=== PATIENT | male | born 1955 | race Asian ===

== ENCOUNTER 2016-11-07 09:31 | Outpatient (CLI) | payer OTHER ==
[~2016-11-07 09:31] MED LIST: ALPR0.5T24 PO; BUMETANIDE2 MG PO; CYPROHEPTAD4 MG PO; FUROSEMIDE80 MG PO; GABA300C2 PO; HYDR-3182 PO; IVABRADINE EX; LANTUS100 MG/ML SC; METO25TA4 PO; PAXIL20 MG PO; POTASSIUM CHLO20 ME1 PO; PRAS10TA PO; SIMV40TA57 PO; SPIR25TA66 PO
[2016-11-07 10:42] LABS: POTASSIUM 3.3 mmol/L (3.6-5.2)
== END 2016-11-07 19:12 | disposition home or self-care (01) ==
LOC: LABW 09:31 → EDBD 09:31 → LABW 19:12
PROVIDERS: Internal Medicine Cardiovascular Disease
DX: Z79.899 Other long term (current) drug therapy (principal); I50.9 Heart failure, unspecified; Z51.81 Encounter for therapeutic drug level monitoring
CPT/HCPCS: 36415; 80048; 83880

== ENCOUNTER 2016-12-02 14:18 | Outpatient (CLI) | payer OTHER ==
[2016-12-02 14:48] LABS: POTASSIUM 3.5 mmol/L (3.6-5.2); SODIUM 134 mmol/L (136-145)
== END 2016-12-02 20:15 | disposition home or self-care (01) ==
LOC: EDBD 14:18 → LABW 14:18
PROVIDERS: Internal Medicine Cardiovascular Disease
DX: I50.9 Heart failure, unspecified (principal); F11.20 Opioid dependence, uncomplicated
CPT/HCPCS: 36415; 80048; 80307; 83880; G0479

== ENCOUNTER 2016-12-02 17:59 | Emergency (ER) | payer OTHER ==
[~2016-12-02] VITALS: Ht 175.3 cm; Wt 79.8 kg
[2016-12-02 20:31] LABS: PLATELET COUNT 347 K/uL (142-355)
[2016-12-02 20:34] LABS: SODIUM 131 mmol/L (136-145)
[2016-12-02 22:54] VITALS: BP 166/87; TEMP 98.6
== END 2016-12-02 23:03 | disposition home or self-care (01) ==
LOC: EDBD 17:59 → ED 17:59
PROVIDERS: Emergency Medicine
DX: E11.65 Type 2 diabetes mellitus with hyperglycemia (principal); Z79.4 Long term (current) use of insulin; I50.9 Heart failure, unspecified; F11.20 Opioid dependence, uncomplicated
CPT/HCPCS: 36415; 80048; 80053; 80307; 81000; 82962; 83880; 85027; 96361; 96365; 96372; 96374; 96376; 99284; G0479; J1815

== ENCOUNTER 2016-12-09 10:52 | Outpatient (CLI) | payer OTHER ==
[2016-12-09 11:28] LABS: POTASSIUM 3.9 mmol/L (3.6-5.2); SODIUM 130 mmol/L (136-145)
== END 2016-12-09 19:09 | disposition home or self-care (01) ==
LOC: EDBD 10:52 → LABW 10:52
PROVIDERS: Internal Medicine Cardiovascular Disease
DX: Z79.899 Other long term (current) drug therapy (principal); Z51.81 Encounter for therapeutic drug level monitoring
CPT/HCPCS: 36415; 80048; 83880

== ENCOUNTER 2017-01-27 13:33 | Outpatient (CLI) | payer OTHER ==
[2017-01-27 14:04] LABS: POTASSIUM 3.3 mmol/L (3.6-5.2); SODIUM 137 mmol/L (136-145)
== END 2017-01-27 19:19 | disposition home or self-care (01) ==
LOC: EDBD 13:33 → LABW 13:33
PROVIDERS: Internal Medicine Cardiovascular Disease
DX: I50.9 Heart failure, unspecified (principal)
CPT/HCPCS: 36415; 80048; 83880

== ENCOUNTER 2017-03-04 10:24 | Emergency (ER) | payer OTHER ==
[~2017-03-04] VITALS: Ht 175.3 cm; Wt 83.9 kg
[2017-03-04 10:30] VITALS: TEMP 98.9
[2017-03-04] MEDS ORDERED: METFTAB PO (10:50)
[2017-03-04] MEDS ORDERED: LATANOPROST0.005 % OP (10:51)
[2017-03-04 10:53] LABS: PLATELET COUNT 431 K/uL (142-355)
[2017-03-04] MEDS ORDERED: NITROSTAT0.4 MG SL (10:55)
[2017-03-04 11:06] LABS: POTASSIUM 3.3 mmol/L (3.6-5.2)
[2017-03-04 12:30] VITALS: BP 160/88
== END 2017-03-04 11:00 | disposition home or self-care (01) ==
LOC: EDBD 10:24 → ED 10:24
DX: I42.8 Other cardiomyopathies (principal); I50.9 Heart failure, unspecified; E87.6 Hypokalemia; E11.65 Type 2 diabetes mellitus with hyperglycemia; I51.7 Cardiomegaly; D64.89 Other specified anemias; N18.9 Chronic kidney disease, unspecified; I44.4 Left anterior fascicular block
CPT/HCPCS: 36415; 80053; 81000; 82962; 83036; 83880; 85027; 93005; 99283

== ENCOUNTER 2017-03-24 16:20 | Emergency (ER) | payer OTHER ==
[~2017-03-24] VITALS: Ht 175.3 cm; Wt 80.3 kg
[2017-03-24 16:20] VITALS: TEMP 97.9
[~2017-03-24 16:20] MED LIST changes: +LATANOPROST0.005 % OP; +METFTAB PO; +NITROSTAT0.4 MG SL
[2017-03-24 17:25] LABS: PLATELET COUNT 513 K/uL (142-355)
[2017-03-24 17:29] LABS: POTASSIUM 3.8 mmol/L (3.6-5.2)
[2017-03-24 21:00] VITALS: BP 131/85
== END 2017-03-24 21:11 | disposition home or self-care (01) ==
LOC: ED 16:20 → EDBD 16:20 → ED 21:11
DX: R55 Syncope and collapse (principal); E11.65 Type 2 diabetes mellitus with hyperglycemia; G45.8 Other transient cerebral ischemic attacks and related syndromes
CPT/HCPCS: 36415; 80053; 80307; 81000; 82947; 83036; 83880; 85027; 93005; 96360; 99284; G0479; J7060

== ENCOUNTER 2017-04-19 07:25 | Outpatient (CLI) | payer OTHER | END 2017-04-19 07:28 | disposition short-term general hospital (02) | LOC: AMB 07:25 | DX: E16.1 Other hypoglycemia (principal) | CPT/HCPCS: A0425; A0427 ==

== ENCOUNTER 2017-04-19 07:32 | Emergency (ER) | payer OTHER ==
[~2017-04-19] VITALS: Ht 172.7 cm; Wt 74.8 kg
[2017-04-19 07:55] VITALS: TEMP 98
[2017-04-19 08:19] LABS: POTASSIUM 3.8 mmol/L (3.6-5.2)
[2017-04-19 08:28] LABS: PLATELET COUNT 313 K/uL (142-355)
[2017-04-19 09:25] VITALS: BP 123/70
== END 2017-04-19 09:47 | disposition home or self-care (01) ==
LOC: ED 07:32
DX: E16.1 Other hypoglycemia (principal); Z91.11 Patient's noncompliance with dietary regimen; F10.20 Alcohol dependence, uncomplicated; E11.9 Type 2 diabetes mellitus without complications
CPT/HCPCS: 80053; 81000; 82962; 83036; 85027; 96365; 96366; 99284

== ENCOUNTER 2017-08-20 17:06 | Emergency (ER) | payer OTHER ==
[~2017-08-20] VITALS: Ht 175.3 cm; Wt 77.1 kg
[2017-08-20 17:43] LABS: PLATELET COUNT 322 K/uL (142-355)
[2017-08-20 17:48] LABS: POTASSIUM 4.2 mmol/L (3.6-5.2)
[2017-08-20 19:27] VITALS: BP 133/58; TEMP 98.5
== END 2017-08-20 19:29 | disposition home or self-care (01) ==
LOC: ED 17:06
PROVIDERS: Emergency Medicine
DX: F14.10 Cocaine abuse, uncomplicated (principal); N39.0 Urinary tract infection, site not specified; I10 Essential (primary) hypertension; D64.89 Other specified anemias; E11.9 Type 2 diabetes mellitus without complications; R31.9 Hematuria, unspecified; I44.4 Left anterior fascicular block
CPT/HCPCS: 36415; 80053; 80307; 80320; 80329; 81000; 85027; 93005; 99285; G0479

== ENCOUNTER 2017-11-16 18:39 | Outpatient (CLI) | payer OTHER | END 2017-11-16 18:43 | disposition short-term general hospital (02) | LOC: AMB 18:39 → EDBD 18:39 → AMB 18:43 | DX: R41.82 Altered mental status, unspecified (principal); R47.81 Slurred speech | CPT/HCPCS: A0425; A0427 ==

== ENCOUNTER 2017-11-16 18:46 | Emergency (ER) | payer OTHER ==
[~2017-11-16] VITALS: Ht 175.3 cm; Wt 83.9 kg
[2017-11-16 20:45] LABS: POTASSIUM 4.3 mmol/L (3.6-5.2)
[2017-11-16 20:53] LABS: PLATELET COUNT 301 K/uL (142-355)
[2017-11-16 22:45] VITALS: BP 148/70; TEMP 98.9
== END 2017-11-16 22:47 | disposition home or self-care (01) ==
LOC: ED 18:46 → EDBD 18:46 → ED 22:47
DX: R41.82 Altered mental status, unspecified (principal); F14.10 Cocaine abuse, uncomplicated; R82.90 Unspecified abnormal findings in urine; R31.9 Hematuria, unspecified
CPT/HCPCS: 36415; 80053; 80307; 80320; 81000; 85027; 87081; 87804; 87880; 93005; 99283

== ENCOUNTER → 2017-12-09 09:40 | Outpatient (CLI) | payer OTHER | END | disposition home or self-care (01) | LOC: AMB 09:40 → EDBD 09:40 | DX: E16.1 Other hypoglycemia (principal) ==

== ENCOUNTER 2017-12-26 09:02 | Outpatient (CLI) | payer OTHER | END 2017-12-26 09:06 | disposition short-term general hospital (02) | LOC: AMB 09:02 | DX: E11.641 Type 2 diabetes mellitus with hypoglycemia with coma (principal) | CPT/HCPCS: A0425; A0427 ==

== ENCOUNTER 2017-12-26 09:14 | Emergency (ER) | payer OTHER ==
[~2017-12-26] VITALS: Ht 175.3 cm; Wt 81.6 kg
[2017-12-26 09:20] VITALS: TEMP 97.5
[2017-12-26 09:41] LABS: PLATELET COUNT 364 K/uL (142-355)
[2017-12-26 10:07] LABS: PARTIAL THROMBOPLASTIN TIME 21.8 SECONDS (24.5-33.6)
[2017-12-26 10:10] LABS: POTASSIUM 3.9 mmol/L (3.6-5.2)
[2017-12-26 12:55] VITALS: BP 151/100
== END 2017-12-26 12:55 | disposition home or self-care (01) ==
LOC: ED 09:14 → EDBD 09:14 → ED 12:55
DX: E11.649 Type 2 diabetes mellitus with hypoglycemia without coma (principal); J32.9 Chronic sinusitis, unspecified; I50.9 Heart failure, unspecified; I42.8 Other cardiomyopathies; I48.92 Unspecified atrial flutter; I44.4 Left anterior fascicular block
CPT/HCPCS: 36415; 80053; 82550; 82553; 82947; 82962; 83036; 83880; 84484; 85027; 85610; 85730; 93005; 96374; 99284; J7060

== ENCOUNTER 2018-03-27 21:49 | Emergency (ER) | payer OTHER ==
[~2018-03-27] VITALS: Ht 175.3 cm; Wt 74.8 kg
[2018-03-27 22:48] LABS: POTASSIUM 4.1 mmol/L (3.6-5.2)
[2018-03-27 22:55] LABS: PLATELET COUNT 212 K/uL (142-355)
[2018-03-28 01:47] VITALS: BP 134/84; TEMP 98.3
== END 2018-03-28 02:00 | disposition home or self-care (01) ==
LOC: ED 21:49
DX: R11.2 Nausea with vomiting, unspecified (principal); R91.8 Other nonspecific abnormal finding of lung field; I51.7 Cardiomegaly; M79.605 Pain in left leg; M79.604 Pain in right leg
CPT/HCPCS: 74022; 80053; 80307; 81000; 82150; 83690; 85027; 96361; 96365; 99284; J2405

== ENCOUNTER 2018-06-23 17:06 | Outpatient (CLI) | payer OTHER | END 2018-06-23 17:09 | disposition short-term general hospital (02) | LOC: AMB 17:06 | DX: E11.649 Type 2 diabetes mellitus with hypoglycemia without coma (principal) | CPT/HCPCS: A0425; A0427 ==

== ENCOUNTER 2018-06-23 17:12 | Emergency (ER) | payer OTHER ==
[~2018-06-23] VITALS: Ht 188 cm; Wt 90.7 kg
[2018-06-23 17:33] LABS: PLATELET COUNT 464 K/uL (142-355)
[2018-06-23 17:39] LABS: POTASSIUM 3.6 mmol/L (3.6-5.2)
[2018-06-23 20:35] VITALS: BP 149/58; TEMP 97.8
== END 2018-06-23 20:45 | disposition short-term general hospital (02) ==
LOC: ED 17:12
PROC: 0T9B70Z Drainage of Bladder with Drainage Device, Via Natural or Artificial Opening (ICD-10-PCS; principal; 2018-06-23)
DX: I50.9 Heart failure, unspecified (principal); E11.649 Type 2 diabetes mellitus with hypoglycemia without coma; R00.0 Tachycardia, unspecified; I45.81 Long QT syndrome
CPT/HCPCS: 51702; 80053; 80307; 81000; 82550; 82553; 82962; 83880; 84484; 85027; 87088; 93005; 96361; 96365; 96374; 99285; J7060

== ENCOUNTER 2018-08-29 11:15 | Observation (INO) | payer OTHER ==
[2018-08-29] VITALS (13 sets, daily range): BP systolic 86–162; BP diastolic 40–96; TEMP 97–98.1; Ht 175.3 cm; Wt 85.7 kg
[~2018-08-29] VITALS: Ht 175.3 cm; Wt 85.7 kg
[2018-08-29 12:09] LABS: POTASSIUM 6.6 mmol/L (3.6-5.2)
[2018-08-29 12:10] LABS: PLATELET COUNT 340 K/uL (142-355)
[2018-08-30] VITALS: BP 142/79; TEMP 99
[2018-08-30 03:58] VITALS: BP 133/68; TEMP 100.4
[2018-08-30 07:05] LABS: PLATELET COUNT 298 K/uL (142-355)
[2018-08-30 07:19] LABS: POTASSIUM 5.3 mmol/L (3.6-5.2)
[2018-08-30 08:00] VITALS: BP 133/79; TEMP 99.6
[2018-08-30 12:00] VITALS: BP 153/78; TEMP 98.8
== END 2018-08-30 12:00 | disposition home or self-care (01) ==
LOC: ED 11:15 → MED/SURG 17:10
PROVIDERS: Family Medicine; ADMIT Emergency Medicine
DX: E11.65 Type 2 diabetes mellitus with hyperglycemia (principal); Z79.4 Long term (current) use of insulin; I25.10 Atherosclerotic heart disease of native coronary artery without angina pectoris; I10 Essential (primary) hypertension; E11.42 Type 2 diabetes mellitus with diabetic polyneuropathy
CPT/HCPCS: 36415; 36600; 80053; 80307; 81000; 82550; 82553; 82805; 82947; 82962; 84484; 85027; 93005; 96361; 96365; 96374; 96375; 99220; 99285; G0378; J1815; J7060

== ENCOUNTER 2019-01-23 16:38 | Outpatient (CLI) | payer OTHER ==
[2019-01-23] MEDS ORDERED: CARV25TA PO (19:14)
[2019-01-23] MEDS ORDERED: PAXIL20 MG PO (19:14)
[2019-01-23] MEDS ORDERED: FURO40TA93 PO (19:15)
[2019-01-23] MEDS ORDERED: COZAAR25 MG PO ×2 (19:15→19:16)
[2019-01-23] MEDS ORDERED: DILT-XR180 MG PO (19:16)
[2019-01-23] MEDS ORDERED: ELIQUIS5 MG PO (19:17)
== END 2019-01-23 16:45 | disposition short-term general hospital (02) ==
LOC: AMB 16:38
DX: R11.2 Nausea with vomiting, unspecified (principal); R53.1 Weakness; L89.309 Pressure ulcer of unspecified buttock, unspecified stage
CPT/HCPCS: A0425; A0427

== ENCOUNTER 2019-01-23 16:50 | Inpatient (IN) | payer OTHER ==
[2019-01-23] VITALS (7 sets, daily range): BP systolic 124–148; BP diastolic 80–87; TEMP 97.4–98.8; Ht 175.3 cm; Wt 77.1 kg
[~2019-01-23] VITALS: Ht 175.3 cm; Wt 77.1 kg
[2019-01-23 17:42] LABS: PLATELET COUNT 386 K/uL (142-355)
[2019-01-23 18:09] LABS: POTASSIUM 3.1 mmol/L (3.6-5.2)
[2019-01-23] MEDS ORDERED: CARV25TA PO (19:14)
[2019-01-23] MEDS ORDERED: PAXIL20 MG PO (19:14)
[2019-01-23] MEDS ORDERED: COZAAR25 MG PO ×2 (19:15→19:16)
[2019-01-23] MEDS ORDERED: FURO40TA93 PO (19:15)
[2019-01-23] MEDS ORDERED: DILT-XR180 MG PO (19:16)
[2019-01-23] MEDS ORDERED: ELIQUIS5 MG PO (19:17)
[2019-01-24] VITALS: BP 146/86; TEMP 98.3
[2019-01-24 04:00] VITALS: BP 124/74; TEMP 98.4
[2019-01-24 05:09] LABS: PLATELET COUNT 390 K/uL (142-355)
[2019-01-24 08:00] VITALS: BP 134/77; TEMP 98
[2019-01-24 12:00] VITALS: BP 117/50; TEMP 98
[2019-01-24 16:00] VITALS: BP 126/71; TEMP 99.1
[2019-01-24 20:00] VITALS: BP 125/64; TEMP 99
[2019-01-25] VITALS: BP 151/83; TEMP 98.7
[2019-01-25 04:00] VITALS: BP 169/83; TEMP 97.6
[2019-01-25 08:09] VITALS: BP 135/75; TEMP 97.8
[2019-01-25 10:36] LABS: PLATELET COUNT 364 K/uL (142-355)
[2019-01-25 10:48] LABS: POTASSIUM 3.5 mmol/L (3.6-5.2)
[2019-01-25 12:06] VITALS: BP 146/74; TEMP 97.9
[2019-01-25 16:03] VITALS: BP 129/73; TEMP 98.4
[2019-01-25 20:00] VITALS: BP 113/68; TEMP 98.6
[2019-01-26] VITALS (7 sets, daily range): BP systolic 113–140; BP diastolic 60–78; TEMP 98.1–99.1
[2019-01-26 06:01] LABS: PLATELET COUNT 291 K/uL (142-355)
[2019-01-26 06:18] LABS: POTASSIUM 4.3 mmol/L (3.6-5.2)
[2019-01-27 03:53] VITALS: BP 123/65; TEMP 98.8
[2019-01-27 05:51] LABS: PLATELET COUNT 284 K/uL (142-355)
[2019-01-27 06:09] LABS: PARTIAL THROMBOPLASTIN TIME 24.7 SECONDS (24.5-33.6); POTASSIUM 4.5 mmol/L (3.6-5.2)
[2019-01-27 08:00] VITALS: BP 150/77; TEMP 98.1
[2019-01-27 12:00] VITALS: BP 137/75; TEMP 98.9
[2019-01-27 16:00] VITALS: BP 122/69; TEMP 98.8
[2019-01-27 20:00] VITALS: BP 145/82; TEMP 99.3
[2019-01-28] VITALS: BP 156/87; TEMP 99.2
[2019-01-28 04:00] VITALS: BP 162/84; TEMP 98.3
[2019-01-28 06:20] LABS: PLATELET COUNT 319 K/uL (142-355)
[2019-01-28 06:27] LABS: POTASSIUM 4.7 mmol/L (3.6-5.2)
[2019-01-28 08:00] VITALS: BP 179/101; TEMP 98.9
[2019-01-28 12:00] VITALS: BP 135/73; TEMP 98.7
[2019-01-28 16:00] VITALS: BP 119/68; TEMP 98.1
[2019-01-28 20:00] VITALS: BP 125/69; TEMP 98.8
[2019-01-29] VITALS: BP 130/65; BP 155/80; TEMP 97.4; TEMP 98.7
[2019-01-29 04:00] VITALS: BP 130/55; TEMP 98.1
[2019-01-29 06:31] LABS: POTASSIUM 5.2 mmol/L (3.6-5.2)
[2019-01-29 06:41] LABS: PLATELET COUNT 322 K/uL (142-355)
[2019-01-29 08:00] VITALS: BP 165/83; TEMP 98.4
[2019-01-29 12:00] VITALS: BP 139/77; TEMP 98.6
[2019-01-29 16:00] VITALS: BP 115/65; TEMP 98.9
[2019-01-29 20:00] VITALS: BP 129/72; TEMP 97.8
[2019-01-30] VITALS (11 sets, daily range): BP systolic 131–178; BP diastolic 77–99; TEMP 97.3–98.4
[2019-01-30 05:35] LABS: PLATELET COUNT 355 K/uL (142-355)
[2019-01-30 05:58] LABS: POTASSIUM 4.7 mmol/L (3.6-5.2)
[2019-01-31] VITALS: BP 140/79; TEMP 98.4
[2019-01-31 04:00] VITALS: BP 128/73; TEMP 98.5
[2019-01-31 05:43] LABS: PLATELET COUNT 303 K/uL (142-355)
[2019-01-31 06:39] LABS: POTASSIUM 4.6 mmol/L (3.6-5.2)
[2019-01-31 08:00] VITALS: BP 142/89; TEMP 98.4
[2019-01-31 12:00] VITALS: BP 151/89; TEMP 98
[2019-01-31 16:00] VITALS: BP 139/77; TEMP 98.2
[2019-01-31 19:59] VITALS: BP 125/63; TEMP 98.5
[2019-02-01] VITALS: BP 124/65; TEMP 98.8
[2019-02-01 04:00] VITALS: BP 135/74; TEMP 98.6
[2019-02-01 05:19] LABS: PLATELET COUNT 311 K/uL (142-355)
[2019-02-01 08:00] VITALS: BP 136/83; TEMP 97.9
[2019-02-01 12:00] VITALS: BP 130/76; TEMP 98.4
[2019-02-01] MEDS ORDERED: GABA300C2 PO (14:31)
[2019-02-01] MEDS ORDERED: FOLI1TAB26 PO (14:31)
[2019-02-01] MEDS ORDERED: MULTTAB52 PO (14:32)
[2019-02-01] MEDS ORDERED: INSU300I SC (14:33)
[2019-02-01] MEDS ORDERED: THIA100T8 PO (14:34)
[2019-02-01 16:00] VITALS: BP 146/85; TEMP 98.2
[2019-02-01 20:00] VITALS: BP 140/71; TEMP 98.7
== END 2019-02-01 21:50 | DRG 637 ==
LOC: ED 16:50 → MED/SURG 19:00
PROVIDERS: Family Medicine; ADMIT Emergency Medicine
PROC: 30233N1 Transfusion of Nonautologous Red Blood Cells into Peripheral Vein, Percutaneous Approach (ICD-10-PCS; principal; 2019-01-24)
PROC: 30233N1 Transfusion of Nonautologous Red Blood Cells into Peripheral Vein, Percutaneous Approach (ICD-10-PCS; 2019-01-25)
PROC: 30233N1 Transfusion of Nonautologous Red Blood Cells into Peripheral Vein, Percutaneous Approach (ICD-10-PCS; 2019-01-29)
PROC: 0DB68ZX Excision of Stomach, Via Natural or Artificial Opening Endoscopic, Diagnostic (ICD-10-PCS; 2019-01-30)
PROC: 0DJD8ZZ Inspection of Lower Intestinal Tract, Via Natural or Artificial Opening Endoscopic (ICD-10-PCS; 2019-01-30)
DX: E11.65 Type 2 diabetes mellitus with hyperglycemia (principal); K29.51 Unspecified chronic gastritis with bleeding; I13.0 Hypertensive heart and chronic kidney disease with heart failure and stage 1 through stage 4 chronic kidney disease, or unspecified chronic kidney disease; L03.113 Cellulitis of right upper limb; E87.1 Hypo-osmolality and hyponatremia; N17.9 Acute kidney failure, unspecified; Z79.4 Long term (current) use of insulin; Z91.14 Patient's other noncompliance with medication regimen; D64.89 Other specified anemias; N18.3 Chronic kidney disease, stage 3 (moderate); F10.20 Alcohol dependence, uncomplicated; R54 Age-related physical debility; L89.152 Pressure ulcer of sacral region, stage 2; E87.6 Hypokalemia; I10 Essential (primary) hypertension; I25.10 Atherosclerotic heart disease of native coronary artery without angina pectoris; Z98.61 Coronary angioplasty status; Z87.891 Personal history of nicotine dependence; E11.22 Type 2 diabetes mellitus with diabetic chronic kidney disease; E11.42 Type 2 diabetes mellitus with diabetic polyneuropathy; I11.0 Hypertensive heart disease with heart failure
CPT/HCPCS: 36415; 36430; 36600; 80053; 81000; 81002; 82272; 82805; 82947; 82948; 82962; 83036; 83605; 83735; 83880; 85027; 85610; 85730; 86850; 86900; 86901; 86922; 93005; 96372; 96374; 99283; J0696; J1200; J1815; J1940; J2001; J2405; J2704; J2930; J3480; J3490; J7060; P9016

== ENCOUNTER 2019-08-21 13:24 | Inpatient (IN) | payer OTHER ==
[~2019-08-21 13:24] MED LIST changes: +CARV25TA PO; +COZAAR25 MG PO; +DILT-XR180 MG PO; +ELIQUIS5 MG PO; +FOLI1TAB26 PO; +FURO40TA93 PO; +INSU300I SC; +MULTTAB52 PO; +THIA100T8 PO
== END 2019-09-01 14:16 | disposition still patient (30) ==
LOC: PAVC 13:24
PROVIDERS: ADMIT Internal Medicine

== ENCOUNTER 2019-08-22 11:59 | Outpatient (CLI) | payer OTHER ==
[2019-08-22 12:12] LABS: PLATELET COUNT 209 K/uL (142-355)
[2019-08-22 12:25] LABS: POTASSIUM 4.2 mmol/L (3.6-5.2)
== END 2019-08-22 19:02 | disposition home or self-care (01) ==
LOC: LAB 11:59
PROVIDERS: Internal Medicine
DX: I11.0 Hypertensive heart disease with heart failure (principal); E11.9 Type 2 diabetes mellitus without complications; N40.0 Benign prostatic hyperplasia without lower urinary tract symptoms; I50.9 Heart failure, unspecified; N18.3 Chronic kidney disease, stage 3 (moderate); I48.0 Paroxysmal atrial fibrillation; D50.8 Other iron deficiency anemias
CPT/HCPCS: 80053; 80061; 82306; 82607; 82728; 82746; 83036; 83540; 83880; 84153; 84443; 85027

== ENCOUNTER 2019-08-23 09:34 | Outpatient (CLI) | payer OTHER | END 2019-08-23 23:28 | disposition home or self-care (01) | LOC: RESP 09:34 | DX: I50.9 Heart failure, unspecified (principal); J44.9 Chronic obstructive pulmonary disease, unspecified; N18.3 Chronic kidney disease, stage 3 (moderate) | CPT/HCPCS: 93306 ==

== ENCOUNTER 2019-09-01 15:00 | Inpatient (IN) | payer OTHER | END 2019-10-01 08:00 | disposition still patient (30) | LOC: PAVC 15:00 | PROVIDERS: ADMIT Internal Medicine ==

== ENCOUNTER 2019-09-21 02:18 | Outpatient (CLI) | payer OTHER | END 2019-09-21 19:09 | disposition home or self-care (01) | LOC: LAB 02:18 | DX: Z11.8 Encounter for screening for other infectious and parasitic diseases (principal) | CPT/HCPCS: 83630; 87015; 87045; 87324; 87328; 87329; 87449; 87493; 87899 ==

== ENCOUNTER 2019-10-01 11:00 | Inpatient (IN) | payer OTHER | END 2019-11-01 09:31 | disposition still patient (30) | LOC: PAVC 11:00 | PROVIDERS: ADMIT Internal Medicine ==

== ENCOUNTER → 2019-10-09 | Outpatient (CLI) | payer OTHER | LOC: LAB 22:00 | DX: R73.9 Hyperglycemia, unspecified (principal) | CPT/HCPCS: 36415; 82947 ==

== ENCOUNTER → 2019-10-14 | Outpatient (CLI) | payer OTHER | LOC: LAB 21:09 | DX: R73.9 Hyperglycemia, unspecified (principal) | CPT/HCPCS: 36415; 82947 ==

== ENCOUNTER → 2019-10-19 | Outpatient (CLI) | payer OTHER | LOC: LAB 20:10 | DX: R73.9 Hyperglycemia, unspecified (principal) | CPT/HCPCS: 82947 ==

== ENCOUNTER → 2019-10-23 | Outpatient (CLI) | payer OTHER | LOC: LAB 22:04 | DX: R73.9 Hyperglycemia, unspecified (principal) | CPT/HCPCS: 36415; 82947 ==

== ENCOUNTER 2019-11-01 10:06 | Inpatient (IN) | payer OTHER ==
[2019-11-25] MEDS ORDERED: SPIRONOLACT25 MG PO (06:23)
[2019-11-25] MEDS ORDERED: VALSARTAN40 MG PO (06:24)
[2019-11-25] MEDS ORDERED: ASCORBIC ACD500 MG PO (06:24)
[2019-11-25] MEDS ORDERED: FURO40TA93 PO (06:27)
[2019-11-25] MEDS ORDERED: CALCIUM 600 WIT1 TAB PO (06:27)
[2019-11-25] MEDS ORDERED: METF500T PO (06:29)
[2019-11-25] MEDS ORDERED: OMEPRAZOLE DR40 MG PO (06:31)
[2019-11-25] MEDS ORDERED: NOVOLOG SC (06:31)
== END 2019-12-02 10:46 | disposition still patient (30) ==
LOC: PAVC 10:06
PROVIDERS: ADMIT Internal Medicine

== ENCOUNTER 2019-11-03 04:47 | Outpatient (CLI) | payer OTHER | END 2019-11-03 19:04 | disposition home or self-care (01) | LOC: LAB 04:47 | DX: E11.69 Type 2 diabetes mellitus with other specified complication (principal) | CPT/HCPCS: 83036 ==

== ENCOUNTER 2019-11-05 06:23 | Outpatient (CLI) | payer OTHER | END 2019-11-05 20:57 | disposition home or self-care (01) | LOC: LAB 06:23 | DX: E11.9 Type 2 diabetes mellitus without complications (principal) | CPT/HCPCS: 36415; 82947 ==

== ENCOUNTER 2019-11-06 21:01 | Outpatient (CLI) | payer OTHER | END 2019-11-06 22:29 | disposition home or self-care (01) | LOC: LAB 21:01 | DX: R73.9 Hyperglycemia, unspecified (principal) | CPT/HCPCS: 36415; 82947 ==

== ENCOUNTER 2019-11-12 06:12 | Outpatient (CLI) | payer OTHER | END 2019-11-12 18:58 | disposition home or self-care (01) | LOC: LAB 06:12 | DX: R73.9 Hyperglycemia, unspecified (principal) | CPT/HCPCS: 82947 ==

== ENCOUNTER 2019-11-17 20:32 | Outpatient (CLI) | payer OTHER | END 2019-11-17 22:48 | disposition home or self-care (01) | LOC: LAB 20:32 | DX: E11.9 Type 2 diabetes mellitus without complications (principal) | CPT/HCPCS: 82947 ==

== ENCOUNTER 2019-11-20 22:38 | Outpatient (CLI) | payer OTHER | END 2019-11-20 23:43 | disposition home or self-care (01) | LOC: LAB 22:38 | DX: E11.9 Type 2 diabetes mellitus without complications (principal) | CPT/HCPCS: 82947 ==

== ENCOUNTER → 2019-11-24 | Outpatient (CLI) | payer OTHER ==
[~2019-11-24] MED LIST changes: +ASCORBIC ACD500 MG PO; +CALCIUM 600 WIT1 TAB PO; +METF500T PO; +NOVOLOG SC; +OMEPRAZOLE DR40 MG PO; +SPIRONOLACT25 MG PO; +VALSARTAN40 MG PO
== END ==
LOC: LAB 20:24
DX: E11.9 Type 2 diabetes mellitus without complications (principal)
CPT/HCPCS: 82947

== ENCOUNTER 2019-11-25 05:57 | Emergency (ER) | payer OTHER ==
[~2019-11-25] VITALS: Ht 175.3 cm; Wt 81.6 kg
[~2019-11-25 05:57] MED LIST changes: -ASCORBIC ACD500 MG PO; -CALCIUM 600 WIT1 TAB PO; -METF500T PO; -NOVOLOG SC; -OMEPRAZOLE DR40 MG PO; -SPIRONOLACT25 MG PO; -VALSARTAN40 MG PO
[2019-11-25 06:04] VITALS: TEMP 97.2
[2019-11-25] MEDS ORDERED: SPIRONOLACT25 MG PO (06:23)
[2019-11-25] MEDS ORDERED: VALSARTAN40 MG PO (06:24)
[2019-11-25] MEDS ORDERED: ASCORBIC ACD500 MG PO (06:24)
[2019-11-25] MEDS ORDERED: FURO40TA93 PO (06:27)
[2019-11-25] MEDS ORDERED: CALCIUM 600 WIT1 TAB PO (06:27)
[2019-11-25] MEDS ORDERED: METF500T PO (06:29)
[2019-11-25] MEDS ORDERED: OMEPRAZOLE DR40 MG PO (06:31)
[2019-11-25] MEDS ORDERED: NOVOLOG SC (06:31)
[2019-11-25 06:59] LABS: PLATELET COUNT 312 K/uL (142-355)
[2019-11-25 07:07] LABS: POTASSIUM 4.8 mmol/L (3.6-5.2)
[2019-11-25 09:38] VITALS: BP 130/67
== END 2019-11-25 09:38 ==
LOC: ED 05:57
PROVIDERS: Family Medicine
DX: E11.649 Type 2 diabetes mellitus with hypoglycemia without coma (principal); Z79.4 Long term (current) use of insulin; N39.0 Urinary tract infection, site not specified
CPT/HCPCS: 80053; 81000; 82947; 82962; 85027; 87077; 87086; 87088; 87185; 87186; 96365; 96375; 99284; J0696

== ENCOUNTER → 2019-11-25 | Outpatient (CLI) | payer OTHER | LOC: LAB 22:16 | DX: E11.65 Type 2 diabetes mellitus with hyperglycemia (principal) | CPT/HCPCS: 82947 ==

== ENCOUNTER 2019-12-02 11:22 | Inpatient (IN) | payer OTHER ==
[~2019-12-02 11:22] MED LIST changes: +ASCORBIC ACD500 MG PO; +CALCIUM 600 WIT1 TAB PO; +METF500T PO; +NOVOLOG SC; +OMEPRAZOLE DR40 MG PO; +SPIRONOLACT25 MG PO; +VALSARTAN40 MG PO
[2019-12-07] MEDS ORDERED: NITR100C56 PO (13:39)
[2019-12-07] MEDS ORDERED: NOVOLOG100 UNIT/M SC (13:42)
[2019-12-07] MEDS ORDERED: TYLENOL325 MG PO (13:45)
== END 2019-12-31 14:12 | disposition still patient (30) ==
LOC: PAVC 11:22
PROVIDERS: ADMIT Internal Medicine

== ENCOUNTER 2019-12-04 22:29 | Outpatient (CLI) | payer OTHER | END 2019-12-04 23:16 | disposition home or self-care (01) | LOC: LAB 22:29 | DX: I50.20 Unspecified systolic (congestive) heart failure (principal); M62.81 Muscle weakness (generalized); R26.2 Difficulty in walking, not elsewhere classified; Z74.1 Need for assistance with personal care; E11.9 Type 2 diabetes mellitus without complications | CPT/HCPCS: 82947 ==

== ENCOUNTER 2019-12-07 05:25 | Inpatient (IN) | payer OTHER ==
[2019-12-07] VITALS (22 sets, daily range): BP systolic 104–166; BP diastolic 58–98; TEMP 93.4–98.3; Ht 175.3 cm; Wt 70.3 kg
[~2019-12-07] VITALS: Ht 175.3 cm; Wt 70.3 kg
[2019-12-07 05:59] LABS: PLATELET COUNT 351 K/uL (142-355)
[2019-12-07 06:55] LABS: POTASSIUM 6.1 mmol/L (3.6-5.2)
[2019-12-07] MEDS ORDERED: NITR100C56 PO (13:39)
[2019-12-07] MEDS ORDERED: NOVOLOG100 UNIT/M SC (13:42)
[2019-12-07] MEDS ORDERED: TYLENOL325 MG PO (13:45)
[2019-12-08] VITALS (13 sets, daily range): BP systolic 110–161; BP diastolic 55–92; TEMP 98.2–98.9
[2019-12-08 04:17] LABS: PLATELET COUNT 268 K/uL (142-355)
[2019-12-08 05:08] LABS: POTASSIUM 6.2 mmol/L (3.6-5.2)
[2019-12-09] VITALS: BP 134/72; TEMP 98.5
[2019-12-09 03:57] VITALS: BP 181/98; TEMP 98.9
[2019-12-09 04:48] LABS: POTASSIUM 5.5 mmol/L (3.6-5.2)
[2019-12-09 04:54] LABS: PLATELET COUNT 249 K/uL (142-355)
[2019-12-09 08:00] VITALS: BP 159/88; TEMP 97.6
[2019-12-09 12:00] VITALS: BP 170/90; TEMP 98
[2019-12-09 16:00] VITALS: BP 163/91; TEMP 98.8
[2019-12-09 20:00] VITALS: BP 164/93; TEMP 98.7
[2019-12-10] VITALS: BP 168/91; TEMP 99.3
[2019-12-10 04:00] VITALS: BP 140/78; TEMP 98.6
[2019-12-10 08:00] VITALS: BP 140/71; TEMP 99.3
[2019-12-10 12:00] VITALS: BP 161/88; TEMP 98.4
[2019-12-10 16:00] VITALS: BP 165/95; TEMP 98.4
[2019-12-10 19:56] VITALS: BP 157/84; TEMP 98.5
[2019-12-11] VITALS: BP 143/80; TEMP 98.6
[2019-12-11 04:00] VITALS: BP 146/84; TEMP 98.9
[2019-12-11 05:48] LABS: PLATELET COUNT 255 K/uL (142-355)
[2019-12-11 06:01] LABS: POTASSIUM 5.2 mmol/L (3.6-5.2)
== END 2019-12-11 11:00 | DRG 690 ==
LOC: ED 05:25 → ICU 07:07 → MED/SURG 12-08 16:27
PROVIDERS: Emergency Medicine; ADMIT Internal Medicine
PROC: 30233N1 Transfusion of Nonautologous Red Blood Cells into Peripheral Vein, Percutaneous Approach (ICD-10-PCS; principal; 2019-12-07)
DX: N39.0 Urinary tract infection, site not specified (principal); E87.1 Hypo-osmolality and hyponatremia; I42.8 Other cardiomyopathies; I95.89 Other hypotension; E87.5 Hyperkalemia; E86.0 Dehydration; R09.02 Hypoxemia; I10 Essential (primary) hypertension; D64.89 Other specified anemias; I25.10 Atherosclerotic heart disease of native coronary artery without angina pectoris; E11.649 Type 2 diabetes mellitus with hypoglycemia without coma; B96.29 Other Escherichia coli [E. coli] as the cause of diseases classified elsewhere
CPT/HCPCS: 36415; 36600; 80053; 81000; 82550; 82553; 82805; 83605; 84484; 85027; 86850; 86900; 86901; 86922; 87077; 87086; 87088; 87186; 93005; 94760; 96361; 96365; 96375; 96376; 99285; J0696; J1335; J1610; J1650; J1815; J1940; J2310; J2405; J7060; P9016

== ENCOUNTER 2019-12-31 14:46 | Inpatient (IN) | payer OTHER ==
[~2019-12-31 14:46] MED LIST changes: +NITR100C56 PO; +NOVOLOG100 UNIT/M SC; +TYLENOL325 MG PO
== END 2020-01-31 11:44 | disposition still patient (30) ==
LOC: PAVC 14:46
PROVIDERS: ADMIT Internal Medicine

== ENCOUNTER 2020-01-31 12:19 | Inpatient (IN) | payer OTHER ==
[2020-02-03] MEDS ORDERED: INSUINJP SC (11:03)
[2020-02-03] MEDS ORDERED: MULT VITAMI1 PO (11:04)
[2020-02-20] MEDS ORDERED: LIPITOR40 MG PO (19:15)
[2020-02-20] MEDS ORDERED: AMLODIPINE BESYLATE PO (19:55)
[2020-02-20] MEDS ORDERED: AZIT250T3 PO (19:59)
[2020-02-20] MEDS ORDERED: HYDR200T3 PO (20:07)
[2020-02-20] MEDS ORDERED: CLONIDINE HYDR0.2 MG PO (20:09)
[2020-03-02] MEDS ORDERED: ACET-206 PO (12:46)
== END 2020-03-01 11:23 | disposition still patient (30) ==
LOC: PAVC 12:19
PROVIDERS: ADMIT Internal Medicine

== ENCOUNTER 2020-02-01 06:30 | Inpatient (IN) | payer OTHER ==
[~2020-02-01] VITALS: Ht 175.3 cm; Wt 74.6 kg
[2020-02-01 08:01] LABS: PLATELET COUNT 199 K/uL (142-355)
[2020-02-01 09:27] LABS: POTASSIUM 6.7 mmol/L (3.6-5.2)
[2020-02-01 15:03] LABS: POTASSIUM 7.1 mmol/L (3.6-5.2)
[2020-02-01 15:37] VITALS: BP 155/87; TEMP 98.1; Ht 175.3 cm; Wt 74.6 kg
[2020-02-01 16:00] VITALS: BP 115/87; TEMP 98.2
[2020-02-01 20:00] VITALS: BP 169/105; TEMP 98.4
[2020-02-02] VITALS: BP 169/109; TEMP 98.9
[2020-02-02 04:00] VITALS: BP 163/110; TEMP 98.5
[2020-02-02 08:00] VITALS: BP 121/78; TEMP 97.9
[2020-02-02 08:23] LABS: POTASSIUM 5.8 mmol/L (3.6-5.2)
[2020-02-02 12:00] VITALS: BP 160/102; TEMP 97.8
[2020-02-02 16:00] VITALS: BP 158/92; TEMP 97.9
[2020-02-02 20:00] VITALS: BP 166/96; TEMP 97.7
[2020-02-03] VITALS: BP 170/101; TEMP 97.9
[2020-02-03 04:00] VITALS: BP 155/96; TEMP 98.2
[2020-02-03 05:09] LABS: POTASSIUM 4.4 mmol/L (3.6-5.2)
[2020-02-03 05:12] LABS: PLATELET COUNT 213 K/uL (142-355)
[2020-02-03 08:07] VITALS: BP 166/107; TEMP 97.8
[2020-02-03] MEDS ORDERED: INSUINJP SC (11:03)
[2020-02-03] MEDS ORDERED: MULT VITAMI1 PO (11:04)
[2020-02-03 12:00] VITALS: BP 157/100; TEMP 98
== END 2020-02-03 11:20 | DRG 812 ==
LOC: LAB 06:30 → MED/SURG 11:58
PROVIDERS: ADMIT Internal Medicine
PROC: 30233N1 Transfusion of Nonautologous Red Blood Cells into Peripheral Vein, Percutaneous Approach (ICD-10-PCS; principal; 2020-02-01)
PROC: 30233N1 Transfusion of Nonautologous Red Blood Cells into Peripheral Vein, Percutaneous Approach (ICD-10-PCS; 2020-02-02)
DX: D64.89 Other specified anemias (principal); I13.0 Hypertensive heart and chronic kidney disease with heart failure and stage 1 through stage 4 chronic kidney disease, or unspecified chronic kidney disease; E87.5 Hyperkalemia; I48.91 Unspecified atrial fibrillation; I25.10 Atherosclerotic heart disease of native coronary artery without angina pectoris; K21.9 Gastro-esophageal reflux disease without esophagitis; E11.22 Type 2 diabetes mellitus with diabetic chronic kidney disease; E11.65 Type 2 diabetes mellitus with hyperglycemia; N18.3 Chronic kidney disease, stage 3 (moderate); E11.42 Type 2 diabetes mellitus with diabetic polyneuropathy
CPT/HCPCS: 80048; 80053; 80061; 82306; 82728; 82746; 83036; 83540; 83735; 85027; 86850; 86900; 86901; 86922; 93005; J1940; P9016

== ENCOUNTER 2020-02-09 06:45 | Outpatient (CLI) | payer OTHER ==
[~2020-02-09 06:45] MED LIST changes: +INSUINJP SC; +MULT VITAMI1 PO
[2020-02-09 10:11] LABS: POTASSIUM 5.8 mmol/L (3.6-5.2)
== END 2020-02-09 20:27 | disposition home or self-care (01) ==
LOC: LAB 06:45
PROVIDERS: Internal Medicine
DX: N18.3 Chronic kidney disease, stage 3 (moderate) (principal); E11.9 Type 2 diabetes mellitus without complications
CPT/HCPCS: 36415; 80048

== ENCOUNTER 2020-02-16 05:41 | Outpatient (CLI) | payer OTHER ==
[2020-02-16 07:41] LABS: POTASSIUM 6.9 mmol/L (3.6-5.2)
== END 2020-02-16 19:53 | disposition home or self-care (01) ==
LOC: LAB 05:41
PROVIDERS: Internal Medicine
DX: D50.8 Other iron deficiency anemias (principal); I50.9 Heart failure, unspecified
CPT/HCPCS: 80048

== ENCOUNTER 2020-02-17 00:27 | Outpatient (CLI) | payer OTHER | END 2020-02-17 19:51 | disposition home or self-care (01) | LOC: LAB 00:27 | DX: E87.5 Hyperkalemia (principal); R19.7 Diarrhea, unspecified | CPT/HCPCS: 87015; 87045; 87077; 87185; 87186; 87899 ==

== ENCOUNTER 2020-02-19 05:54 | Outpatient (CLI) | payer OTHER ==
[2020-02-19 12:21] LABS: POTASSIUM 6.8 mmol/L (3.6-5.2)
[2020-02-20] MEDS ORDERED: LIPITOR40 MG PO (19:15)
[2020-02-20] MEDS ORDERED: AMLODIPINE BESYLATE PO (19:55)
[2020-02-20] MEDS ORDERED: AZIT250T3 PO (19:59)
[2020-02-20] MEDS ORDERED: HYDR200T3 PO (20:07)
[2020-02-20] MEDS ORDERED: CLONIDINE HYDR0.2 MG PO (20:09)
== END 2020-02-19 20:07 | disposition home or self-care (01) ==
LOC: LAB 05:54
PROVIDERS: Internal Medicine
DX: E87.5 Hyperkalemia (principal); R79.89 Other specified abnormal findings of blood chemistry
CPT/HCPCS: 80048

== ENCOUNTER 2020-02-20 07:58 | Outpatient (CLI) | payer OTHER ==
[2020-02-20 08:25] LABS: POTASSIUM 6.5 mmol/L (3.6-5.2)
[2020-02-20] MEDS ORDERED: LIPITOR40 MG PO (19:15)
[2020-02-20] MEDS ORDERED: AMLODIPINE BESYLATE PO (19:55)
[2020-02-20] MEDS ORDERED: AZIT250T3 PO (19:59)
[2020-02-20] MEDS ORDERED: HYDR200T3 PO (20:07)
[2020-02-20] MEDS ORDERED: CLONIDINE HYDR0.2 MG PO (20:09)
== END 2020-02-20 22:31 | disposition home or self-care (01) ==
LOC: LAB 07:58
PROVIDERS: Internal Medicine
DX: E87.5 Hyperkalemia (principal)
CPT/HCPCS: 80048

== ENCOUNTER 2020-02-20 14:02 | Inpatient (IN) | payer OTHER ==
[~2020-02-20] VITALS: Ht 175.3 cm; Wt 75.7 kg
[2020-02-20 14:05] VITALS: BP 124/69; TEMP 99
[2020-02-20 14:32] LABS: PLATELET COUNT 290 K/uL (142-355)
[2020-02-20 14:36] LABS: POTASSIUM 6.1 mmol/L (3.6-5.2)
[2020-02-20 15:00] VITALS: BP 128/76
[2020-02-20 15:30] VITALS: TEMP 97.9
[2020-02-20 18:28] VITALS: BP 124/71; TEMP 97.3; Ht 175.3 cm; Wt 75.7 kg
[2020-02-20 19:00] VITALS: BP 132/75
[2020-02-20] MEDS ORDERED: LIPITOR40 MG PO (19:15)
[2020-02-20] MEDS ORDERED: AMLODIPINE BESYLATE PO (19:55)
[2020-02-20] MEDS ORDERED: AZIT250T3 PO (19:59)
[2020-02-20] MEDS ORDERED: HYDR200T3 PO (20:07)
[2020-02-20] MEDS ORDERED: CLONIDINE HYDR0.2 MG PO (20:09)
[2020-02-21] VITALS: BP 131/72; TEMP 97.3
[2020-02-21 04:00] VITALS: BP 141/78; TEMP 97.7
[2020-02-21 06:57] LABS: PLATELET COUNT 315 K/uL (142-355)
[2020-02-21 07:11] LABS: POTASSIUM 5.8 mmol/L (3.6-5.2)
[2020-02-21 08:00] VITALS: BP 130/69; TEMP 97.7
[2020-02-21 12:00] VITALS: BP 116/65; TEMP 98.3
[2020-02-21 16:00] VITALS: BP 120/61; TEMP 98.8
[2020-02-21 20:00] VITALS: BP 119/64; TEMP 98.9
[2020-02-22] VITALS (13 sets, daily range): BP systolic 116–135; BP diastolic 56–74; TEMP 97.4–103
[2020-02-22 05:43] LABS: PLATELET COUNT 303 K/uL (142-355)
[2020-02-22 05:55] LABS: POTASSIUM 5.5 mmol/L (3.6-5.2)
[2020-02-23] VITALS (14 sets, daily range): BP systolic 128–171; BP diastolic 70–88; TEMP 97.4–98.9
[2020-02-23 05:29] LABS: POTASSIUM 4.8 mmol/L (3.6-5.2)
[2020-02-23 05:41] LABS: PLATELET COUNT 297 K/uL (142-355)
[2020-02-24] VITALS (18 sets, daily range): BP systolic 136–166; BP diastolic 70–98; TEMP 97.6–99.2
[2020-02-25] VITALS (22 sets, daily range): BP systolic 141–1646; BP diastolic 84–106; TEMP 97.5–99.1
[2020-02-25 05:32] LABS: PLATELET COUNT 257 K/uL (142-355)
[2020-02-26] VITALS (28 sets, daily range): BP systolic 142–182; BP diastolic 77–94; TEMP 97.6–98.7
[2020-02-26 06:09] LABS: PLATELET COUNT 214 K/uL (142-355)
[2020-02-26 06:33] LABS: POTASSIUM 3.5 mmol/L (3.6-5.2)
[2020-02-27] VITALS (23 sets, daily range): BP systolic 109–161; BP diastolic 65–97; TEMP 97.8–99.3
[2020-02-28] VITALS (24 sets, daily range): BP systolic 154–172; BP diastolic 82–108; TEMP 97.6–99.2
[2020-02-28 06:30] LABS: POTASSIUM 3.5 mmol/L (3.6-5.2)
[2020-02-28 07:09] LABS: PLATELET COUNT 83 K/uL (142-355)
[2020-02-29] VITALS (21 sets, daily range): BP systolic 146–171; BP diastolic 76–101; TEMP 97–98.4
[2020-02-29 04:38] LABS: PLATELET COUNT 261 K/uL (142-355)
[2020-02-29 04:42] LABS: POTASSIUM 3.9 mmol/L (3.6-5.2)
[2020-03-01] VITALS (19 sets, daily range): BP systolic 131–162; BP diastolic 76–97; TEMP 97.8–98.8
[2020-03-01 06:45] LABS: PLATELET COUNT 262 K/uL (142-355)
[2020-03-01 06:57] LABS: POTASSIUM 3.9 mmol/L (3.6-5.2)
[2020-03-02] VITALS (24 sets, daily range): BP systolic 130–170; BP diastolic 73–100; TEMP 97.9–99.1
[2020-03-02 09:33] LABS: POTASSIUM 3.9 mmol/L (3.6-5.2)
[2020-03-02 09:55] LABS: PLATELET COUNT 249 K/uL (142-355)
[2020-03-02] MEDS ORDERED: ACET-206 PO (12:46)
[2020-03-03] VITALS (10 sets, daily range): BP systolic 133–151; BP diastolic 76–91; TEMP 97.9–98.8
== END 2020-03-03 10:00 | DRG 177 ==
LOC: ED 14:02 → ICU 15:39 → ED 15:39 → MED/SURG 15:39 → ICU 21:25
PROVIDERS: Internal Medicine; Internal Medicine Endocrinology, Diabetes & Metabolism; ADMIT Family Medicine
DX: U07.1 COVID-19 (principal); J18.8 Other pneumonia, unspecified organism; R65.21 Severe sepsis with septic shock; N17.8 Other acute kidney failure; E87.1 Hypo-osmolality and hyponatremia; E44.0 Moderate protein-calorie malnutrition; A04.8 Other specified bacterial intestinal infections; E87.5 Hyperkalemia; E78.49 Other hyperlipidemia; E11.42 Type 2 diabetes mellitus with diabetic polyneuropathy; I10 Essential (primary) hypertension; K21.9 Gastro-esophageal reflux disease without esophagitis; F32.89 Other specified depressive episodes
CPT/HCPCS: 36415; 80048; 80053; 82570; 84300; 85027; 87502; 87651; 94760; 99283; 99285; J0360; J0696; J0713; J1650; J1815; J1940; J2405

== ENCOUNTER 2020-03-01 12:00 | Inpatient (IN) | payer OTHER ==
[~2020-03-01 12:00] MED LIST changes: +AMLODIPINE BESYLATE PO; +AZIT250T3 PO; +CLONIDINE HYDR0.2 MG PO; +HYDR200T3 PO; +LIPITOR40 MG PO
[2020-03-02] MEDS ORDERED: ACET-206 PO (12:46)
== END 2020-04-01 11:22 | disposition still patient (30) ==
LOC: PAVC 12:00
PROVIDERS: ADMIT Internal Medicine

== ENCOUNTER 2020-03-19 12:48 | Outpatient (CLI) | payer OTHER ==
[~2020-03-19 12:48] MED LIST changes: +ACET-206 PO
== END 2020-03-19 19:13 | disposition home or self-care (01) ==
LOC: US 12:48 → LAB 12:48
DX: N50.89 Other specified disorders of the male genital organs (principal)
CPT/HCPCS: 81000; 87086; 87088

== ENCOUNTER 2020-03-20 18:55 | Outpatient (CLI) | payer OTHER ==
[2020-03-20 19:44] LABS: POTASSIUM 4.9 mmol/L (3.6-5.2)
== END 2020-03-20 22:24 | disposition home or self-care (01) ==
LOC: LAB 18:55
PROVIDERS: Nurse Practitioner
DX: R60.0 Localized edema (principal)
CPT/HCPCS: 36415; 80053; 83880

== ENCOUNTER 2020-03-21 11:05 | Outpatient (CLI) | payer OTHER | END 2020-03-21 22:54 | disposition home or self-care (01) | LOC: RESP 11:05 | DX: I50.9 Heart failure, unspecified (principal) ==

== ENCOUNTER 2020-03-22 04:35 | Outpatient (CLI) | payer OTHER ==
[2020-03-22 06:06] LABS: POTASSIUM 4.8 mmol/L (3.6-5.2)
== END 2020-03-22 23:00 | disposition home or self-care (01) ==
LOC: LAB 04:35
PROVIDERS: Internal Medicine
DX: R60.0 Localized edema (principal)
CPT/HCPCS: 36415; 80048

== ENCOUNTER 2020-03-24 14:54 | Outpatient (CLI) | payer OTHER ==
[2020-03-24 15:40] LABS: POTASSIUM 4.5 mmol/L (3.6-5.2)
== END 2020-03-24 19:13 | disposition home or self-care (01) ==
LOC: LAB 14:54
PROVIDERS: Internal Medicine
DX: R60.1 Generalized edema (principal)
CPT/HCPCS: 80048

== ENCOUNTER 2020-03-26 11:38 | Emergency (ER) | payer OTHER ==
[~2020-03-26] VITALS: Ht 175.3 cm; Wt 89.8 kg
[2020-03-26 11:38] VITALS: TEMP 98.1
[2020-03-26 12:52] LABS: POTASSIUM 4.8 mmol/L (3.6-5.2); SODIUM 136 mmol/L (136-145)
[2020-03-26 13:00] LABS: PLATELET COUNT 220 K/uL (142-355)
[2020-03-26 17:00] VITALS: BP 136/84
== END 2020-03-26 17:09 ==
LOC: ED 11:52
PROVIDERS: Family Medicine
DX: I50.9 Heart failure, unspecified (principal); N50.89 Other specified disorders of the male genital organs; E11.649 Type 2 diabetes mellitus with hypoglycemia without coma; Z79.4 Long term (current) use of insulin
CPT/HCPCS: 36415; 80053; 81000; 82550; 83605; 83880; 84484; 85027; 85379; 87040; 93005; 96374; 96375; 99284; J1940; J7060

== ENCOUNTER 2020-03-29 05:59 | Outpatient (CLI) | payer OTHER ==
[2020-03-29 08:15] LABS: PLATELET COUNT 229 K/uL (142-355)
[2020-03-29 09:12] LABS: POTASSIUM 4.3 mmol/L (3.6-5.2)
== END 2020-03-29 19:17 | disposition home or self-care (01) ==
LOC: LAB 05:59
PROVIDERS: Internal Medicine
DX: I50.9 Heart failure, unspecified (principal); E87.5 Hyperkalemia
CPT/HCPCS: 80048; 85027

== ENCOUNTER 2020-03-30 07:22 | Outpatient (CLI) | payer OTHER | END 2020-03-30 23:37 | disposition home or self-care (01) | LOC: LAB 07:22 | DX: E16.2 Hypoglycemia, unspecified (principal) | CPT/HCPCS: 82947 ==

== ENCOUNTER 2020-04-01 11:51 | Inpatient (IN) | payer OTHER ==
[2020-04-05] MEDS ORDERED: FINASTERIDE5 MG PO (09:35)
[2020-04-05] MEDS ORDERED: TAMSULOSIN0.4 MG PO (09:36)
== END 2020-05-01 11:56 | disposition still patient (30) ==
LOC: PAVC 11:51
PROVIDERS: ADMIT Internal Medicine

== ENCOUNTER → 2020-04-18 | Outpatient (CLI) | payer OTHER ==
[~2020-04-18] MED LIST changes: +FINASTERIDE5 MG PO; +TAMSULOSIN0.4 MG PO
== END ==
LOC: LAB 18:01
DX: S81.802A Unspecified open wound, left lower leg, initial encounter (principal)
CPT/HCPCS: 87070; 87077; 87185; 87186; 87205

== ENCOUNTER 2020-05-01 07:01 | Outpatient (CLI) | payer OTHER | END 2020-05-01 22:01 | disposition home or self-care (01) | LOC: LAB 07:01 | DX: E11.9 Type 2 diabetes mellitus without complications (principal) | CPT/HCPCS: 83036 ==

== ENCOUNTER 2020-05-01 12:13 | Inpatient (IN) | payer OTHER ==
[2020-05-11] MEDS ORDERED: FOLI1TAB26 PO (11:23)
[2020-05-11] MEDS ORDERED: FERROUS SULF325 MG PO (11:23)
[2020-05-11] MEDS ORDERED: DOCU100C10 PO (11:23)
[2020-05-11] MEDS ORDERED: CEFT1INJ27 IM (11:23)
== END 2020-06-01 10:15 | disposition still patient (30) ==
LOC: PAVC 12:13
PROVIDERS: ADMIT Internal Medicine

== ENCOUNTER 2020-05-05 17:22 | Outpatient (CLI) | payer OTHER | END 2020-05-05 19:05 | disposition home or self-care (01) | LOC: LAB 17:22 | DX: R89.5 Abnormal microbiological findings in specimens from other organs, systems and tissues (principal) | CPT/HCPCS: 87070; 87205 ==

== ENCOUNTER 2020-05-10 18:00 | Observation (INO) | payer OTHER ==
[~2020-05-10] VITALS: Ht 175.3 cm; Wt 82.6 kg
[2020-05-10 17:40] VITALS: BP 136/76; TEMP 98.2; Ht 175.3 cm; Wt 82.6 kg
[2020-05-10 20:00] VITALS: BP 124/74; TEMP 99
[2020-05-11] VITALS (14 sets, daily range): BP systolic 133–146; BP diastolic 72–86; TEMP 97.5–98.5
[2020-05-11 10:58] LABS: PLATELET COUNT 310 K/uL (142-355)
[2020-05-11] MEDS ORDERED: DOCU100C10 PO (11:23)
[2020-05-11] MEDS ORDERED: FERROUS SULF325 MG PO (11:23)
[2020-05-11] MEDS ORDERED: FOLI1TAB26 PO (11:23)
[2020-05-11] MEDS ORDERED: CEFT1INJ27 IM (11:23)
--- NOTE | 2020-05-11 18:43 | NUR ---
PATIENT WAS TRANSFUSED 2 UNITS OF O NEG. PATIENTS HEMAGLOBIN CAME UP TO [address] BOYCE DISCHARGED HIM ON A ANTIBOTIC FOR HIS UTI. AND ALSO SOME IRON AND FOLIC ACID FOR HIS ANEMIA
== END 2020-05-11 16:05 ==
LOC: MED/SURG 18:00
PROVIDERS: ADMIT Internal Medicine
PROC: 30233N1 Transfusion of Nonautologous Red Blood Cells into Peripheral Vein, Percutaneous Approach (ICD-10-PCS; principal; 2020-05-11)
DX: D64.89 Other specified anemias (principal); N39.0 Urinary tract infection, site not specified; N40.0 Benign prostatic hyperplasia without lower urinary tract symptoms; E11.42 Type 2 diabetes mellitus with diabetic polyneuropathy; E78.49 Other hyperlipidemia; K21.9 Gastro-esophageal reflux disease without esophagitis; F32.89 Other specified depressive episodes; E11.22 Type 2 diabetes mellitus with diabetic chronic kidney disease; I12.9 Hypertensive chronic kidney disease with stage 1 through stage 4 chronic kidney disease, or unspecified chronic kidney disease; N18.3 Chronic kidney disease, stage 3 (moderate)
CPT/HCPCS: 82570; 82607; 82728; 82746; 83540; 84300; 85027; 86850; 86900; 86901; 86922; 99220; G0378; G0379; J0696; P9016

== ENCOUNTER 2020-05-21 11:10 | Outpatient (CLI) | payer OTHER ==
[~2020-05-21 11:10] MED LIST changes: +CEFT1INJ27 IM; +DOCU100C10 PO; +FERROUS SULF325 MG PO
[2020-05-21 11:33] LABS: POTASSIUM 5.4 mmol/L (3.6-5.2)
== END 2020-05-21 19:08 | disposition home or self-care (01) ==
LOC: LAB 11:10
PROVIDERS: Internal Medicine
DX: I50.9 Heart failure, unspecified (principal); R79.89 Other specified abnormal findings of blood chemistry
CPT/HCPCS: 80048; 83880

== ENCOUNTER 2020-05-31 11:07 | Outpatient (CLI) | payer OTHER ==
[2020-05-31 11:31] LABS: POTASSIUM 6.1 mmol/L (3.6-5.2)
== END 2020-05-31 20:00 | disposition home or self-care (01) ==
LOC: LAB 11:07
PROVIDERS: Nurse Practitioner
DX: R60.9 Edema, unspecified (principal); I50.9 Heart failure, unspecified
CPT/HCPCS: 80053; 83880; 85379

== ENCOUNTER 2020-05-31 11:30 | Outpatient (CLI) | payer OTHER | END 2020-05-31 20:00 | disposition home or self-care (01) | LOC: RAD 11:30 | DX: I50.9 Heart failure, unspecified (principal); R60.9 Edema, unspecified ==

== ENCOUNTER 2020-06-01 05:45 | Outpatient (CLI) | payer OTHER ==
[2020-06-01 08:24] LABS: POTASSIUM 5.4 mmol/L (3.6-5.2)
== END 2020-06-01 19:11 | disposition home or self-care (01) ==
LOC: LAB 05:45
PROVIDERS: Internal Medicine
DX: I50.9 Heart failure, unspecified (principal); R79.89 Other specified abnormal findings of blood chemistry
CPT/HCPCS: 80048; 83880

== ENCOUNTER 2020-06-01 10:36 | Inpatient (IN) | payer OTHER | END 2020-07-02 14:03 | disposition still patient (30) | LOC: PAVC 10:36 | PROVIDERS: ADMIT Internal Medicine | CPT/HCPCS: 87635; U0003 ==

== ENCOUNTER 2020-06-02 06:15 | Outpatient (CLI) | payer OTHER ==
[2020-06-02 06:50] LABS: POTASSIUM 5.4 mmol/L (3.6-5.2)
== END 2020-06-02 18:57 | disposition home or self-care (01) ==
LOC: LAB 06:15
PROVIDERS: Internal Medicine
DX: I50.9 Heart failure, unspecified (principal); R79.89 Other specified abnormal findings of blood chemistry
CPT/HCPCS: 80048

== ENCOUNTER 2020-06-03 09:51 | Outpatient (CLI) | payer OTHER | END 2020-06-03 22:37 | disposition home or self-care (01) | LOC: NM 09:51 | DX: R79.89 Other specified abnormal findings of blood chemistry (principal); R09.02 Hypoxemia | CPT/HCPCS: A9567 ==

== ENCOUNTER 2020-06-06 17:48 | Outpatient (CLI) | payer OTHER ==
[2020-06-06 18:07] LABS: PLATELET COUNT 245 K/uL (142-355)
[2020-06-06 18:37] LABS: POTASSIUM 5.7 mmol/L (3.6-5.2)
== END 2020-06-06 20:11 | disposition home or self-care (01) ==
LOC: LAB 17:48
PROVIDERS: Internal Medicine
DX: N18.3 Chronic kidney disease, stage 3 (moderate) (principal); I50.9 Heart failure, unspecified
CPT/HCPCS: 80053; 83880; 84100; 85027

== ENCOUNTER 2020-06-06 19:14 | Outpatient (CLI) | payer OTHER | END 2020-06-06 20:11 | disposition home or self-care (01) | LOC: LAB 19:14 | DX: N18.3 Chronic kidney disease, stage 3 (moderate) (principal) | CPT/HCPCS: 81000 ==

== ENCOUNTER → 2020-06-07 | Outpatient (CLI) | payer OTHER | LOC: LAB 19:37 | DX: R80.8 Other proteinuria (principal) | CPT/HCPCS: 82570; 84155 ==

== ENCOUNTER 2020-06-10 05:15 | Outpatient (CLI) | payer OTHER | END 2020-06-10 19:11 | disposition home or self-care (01) | LOC: LAB 05:15 | PROVIDERS: Internal Medicine | DX: I11.0 Hypertensive heart disease with heart failure (principal); I50.9 Heart failure, unspecified; N18.3 Chronic kidney disease, stage 3 (moderate) | CPT/HCPCS: 80048 ==

== ENCOUNTER 2020-06-10 22:28 | Emergency (ER) | payer OTHER ==
[~2020-06-10] VITALS: Ht 175.3 cm; Wt 86.0 kg
[2020-06-10 23:17] LABS: POTASSIUM 5.9 mmol/L (3.6-5.2)
[2020-06-10 23:33] LABS: PLATELET COUNT 243 K/uL (142-355)
[2020-06-11 01:00] VITALS: BP 122/67; TEMP 98.2
== END 2020-06-11 01:00 | disposition short-term general hospital (02) ==
LOC: ED 22:28
PROVIDERS: Emergency Medicine Emergency Medical Services
DX: T21.02XA Burn of unspecified degree of abdominal wall, initial encounter (principal); L89.152 Pressure ulcer of sacral region, stage 2; N17.9 Acute kidney failure, unspecified; D64.89 Other specified anemias; T31.0 Burns involving less than 10% of body surface; X12.XXXA Contact with other hot fluids, initial encounter; Y92.128 Other place in nursing home as the place of occurrence of the external cause
CPT/HCPCS: 36415; 80053; 85027; 96365; 96375; 99285; J0610; J1815; J2270

== ENCOUNTER 2020-07-02 14:51 | Inpatient (IN) | payer OTHER ==
[2020-07-19] MEDS ORDERED: AMLODIPINE BESYLATE PO (00:34)
[2020-07-19] MEDS ORDERED: ELIQUIS5 MG PO (00:41)
[2020-07-19] MEDS ORDERED: ASCO500T18 PO (00:44)
[2020-07-19] MEDS ORDERED: LABETALOL200 MG PO (00:47)
[2020-07-19] MEDS ORDERED: NOVOLOG100 UNIT/M SC (00:51)
[2020-07-19] MEDS ORDERED: SEROQUEL50 MG PO (00:55)
[2020-07-19] MEDS ORDERED: HYDRALAZINE HY100 MG PO (00:57)
[2020-07-19] MEDS ORDERED: TYLENOL325 MG PO ×2 (00:58→01:00)
[2020-07-19] MEDS ORDERED: GLUCAGON1 MG INJ (01:04)
[2020-07-19] MEDS ORDERED: NOVOLOG FL100 UNIT/M SC (01:08)
[2020-07-19] MEDS ORDERED: OXYC5TAB24 PO (01:10)
[2020-07-19] MEDS ORDERED: OLAN10INJ IM (15:32)
[2020-07-19] MEDS ORDERED: ABILIFY 10MG TAB PO (15:32)
== END 2020-08-01 14:10 | disposition still patient (30) ==
LOC: PAVC 14:51
PROVIDERS: ADMIT Internal Medicine

== ENCOUNTER 2020-07-28 16:00 | Emergency (ER) | payer OTHER ==
[~2020-07-28] VITALS: Ht 33 cm; Wt 0.5 kg
[~2020-07-28 16:00] MED LIST changes: +ABILIFY 10MG TAB PO; +ASCO500T18 PO; +GLUCAGON1 MG INJ; +HYDRALAZINE HY100 MG PO; +LABETALOL200 MG PO; +NOVOLOG FL100 UNIT/M SC; +OLAN10INJ IM; +OXYC5TAB24 PO; +SEROQUEL50 MG PO
[2020-07-28 16:41] LABS: PLATELET COUNT 224 K/uL (142-355)
[2020-07-28 16:58] LABS: POTASSIUM 4.4 mmol/L (3.6-5.2)
[2020-07-28 17:04] LABS: PARTIAL THROMBOPLASTIN TIME 29.7 SECONDS (24.5-33.6)
[2020-07-28 19:44] VITALS: BP 137/63; TEMP 99.1
== END 2020-07-28 19:46 | disposition short-term general hospital (02) ==
LOC: ED 16:00
PROVIDERS: Emergency Medicine Emergency Medical Services
DX: R11.2 Nausea with vomiting, unspecified (principal); K92.2 Gastrointestinal hemorrhage, unspecified; N18.6 End stage renal disease; Z99.2 Dependence on renal dialysis
CPT/HCPCS: 80053; 82271; 83690; 83986; 85027; 85610; 85730; 96360; 96375; 96376; 99284; J2060; J2405; J3490

== ENCOUNTER 2020-08-01 15:10 | Inpatient (IN) | payer OTHER | END 2020-09-01 08:00 | disposition still patient (30) | LOC: PAVC 15:10 | PROVIDERS: ADMIT Internal Medicine ==

== ENCOUNTER 2020-08-05 06:14 | Outpatient (CLI) | payer OTHER ==
[2020-08-05 07:11] LABS: PLATELET COUNT 265 K/uL (142-355)
[2020-08-05 08:02] LABS: POTASSIUM 4.2 mmol/L (3.6-5.2)
== END 2020-08-05 23:35 | disposition home or self-care (01) ==
LOC: LAB 06:14
PROVIDERS: Family Medicine
DX: I50.9 Heart failure, unspecified (principal); Z79.899 Other long term (current) drug therapy
CPT/HCPCS: 80053; 80061; 82306; 82728; 82746; 83036; 83540; 85027

== ENCOUNTER 2020-08-08 13:00 | Outpatient (CLI) | payer OTHER | END 2020-08-08 19:59 | disposition home or self-care (01) | LOC: LAB 13:00 | DX: D64.89 Other specified anemias (principal) | CPT/HCPCS: 85014; 85018 ==

== ENCOUNTER 2020-08-15 14:27 | Outpatient (CLI) | payer OTHER | END 2020-08-15 22:18 | disposition home or self-care (01) | LOC: LAB 14:27 | DX: D64.89 Other specified anemias (principal) | CPT/HCPCS: 85014; 85018 ==

== ENCOUNTER 2020-09-01 09:00 | Inpatient (IN) | payer OTHER | END 2020-10-01 12:25 | disposition still patient (30) | LOC: PAVC 09:00 | PROVIDERS: ADMIT Internal Medicine; ATTEND Internal Medicine ==

== ENCOUNTER 2020-09-10 14:28 | Emergency (ER) | payer OTHER ==
[~2020-09-10] VITALS: Ht 177.8 cm; Wt 79.1 kg
[2020-09-10 14:28] VITALS: TEMP 97.4
[2020-09-10 16:04] LABS: PLATELET COUNT 233 K/uL (142-355)
[2020-09-10 16:15] LABS: POTASSIUM 3.8 mmol/L (3.6-5.2)
[2020-09-10 19:00] VITALS: BP 154/92
== END 2020-09-10 19:06 ==
LOC: ED 14:28
PROVIDERS: Family Medicine
DX: E11.649 Type 2 diabetes mellitus with hypoglycemia without coma (principal); Z79.4 Long term (current) use of insulin; R41.82 Altered mental status, unspecified
CPT/HCPCS: 80053; 85027; 96374; 99284; J7060

== ENCOUNTER 2020-10-01 12:53 | Inpatient (IN) | payer OTHER | END 2020-11-01 10:11 | disposition still patient (30) | LOC: PAVC 12:53 | PROVIDERS: ADMIT Family Medicine; ATTEND Family Medicine ==

== ENCOUNTER 2020-11-01 10:08 | Inpatient (IN) | payer OTHER | END 2020-11-16 15:30 | LOC: PAVC 10:08 | PROVIDERS: ADMIT Family Medicine; ATTEND Family Medicine ==

== ENCOUNTER 2020-11-04 11:14 | Outpatient (CLI) | payer OTHER | END 2020-11-04 21:09 | disposition home or self-care (01) | LOC: LAB 11:14 | PROVIDERS: ATTEND Family Medicine | DX: E11.9 Type 2 diabetes mellitus without complications (principal) | CPT/HCPCS: 83036 ==